=== PATIENT | male | born 2000 | race Two or more races ===

== ENCOUNTER 2022-08-11 23:17 | Emergency (ER) | payer SELFPAY ==
[~2022-08-11] VITALS: Ht 185.4 cm; Wt 60.9 kg
[2022-08-11 23:18] VITALS: BP 112/64
== END 2022-08-12 01:51 | disposition left against medical advice (07) ==
LOC: M ED 23:17
DX: Z53.21 Procedure and treatment not carried out due to patient leaving prior to being seen by health care provider (principal)